=== PATIENT | male | born 2000 | race African-American/Black ===

== ENCOUNTER 2023-02-25 08:30 | Emergency (ER) | payer OTHER ==
[~2023-02-25] VITALS: Ht 182.9 cm; Wt 96.4 kg
[2023-02-25] MEDS ORDERED: IBUPROFEN 600MG TAB PO ONE (09:15)
[2023-02-25 10:10] VITALS: BP 135/96
== END 2023-02-25 10:17 | disposition home or self-care (01) ==
LOC: M ED 08:30
DX: M54.9 Dorsalgia, unspecified (principal)

== ENCOUNTER 2023-11-12 19:08 | Emergency (ER) | payer OTHER ==
[~2023-11-12] VITALS: Ht 182.9 cm; Wt 101.3 kg
[2023-11-12 19:09] VITALS: BP 143/78; TEMP 98; O2SAT 98
== END 2023-11-12 23:36 | disposition left against medical advice (07) ==
LOC: M ED 19:08
DX: Z53.21 Procedure and treatment not carried out due to patient leaving prior to being seen by health care provider (principal)

== ENCOUNTER → 2024-04-24 | Outpatient (CLI) | payer OTHER ==
[~2024-04-24] MED LIST: IBUP-1022 PO
== END ==
LOC: M PLALAB 12:32
PROVIDERS: ATTEND Advanced Practice Midwife
DX: Z13.79 Encounter for other screening for genetic and chromosomal anomalies (principal)

== ENCOUNTER 2025-01-25 16:45 | Emergency (ER) | payer OTHER ==
[~2025-01-25] VITALS: Ht 182.9 cm; Wt 176.1 kg
[2025-01-25 18:24] VITALS: BP 139/87; TEMP 97.4; O2SAT 100
== END 2025-01-25 18:56 | disposition home or self-care (01) ==
LOC: M ED 16:45
DX: S43.402A Unspecified sprain of left shoulder joint, initial encounter (principal); Y92.9 Unspecified place or not applicable; Y93.9 Activity, unspecified; Y99.0 Civilian activity done for income or pay